=== PATIENT | female | born 2005 | race Two or more races ===

== ENCOUNTER 2024-11-25 19:57 | Emergency (ER) | payer MEDICAID, SELFPAY ==
[2024-11-25 19:58] VITALS: BMI 37.0
[2024-11-25 20:15] VITALS: BP 106/70; PULSE 112; RESP 18; TEMP 36.9; O2SAT 100
--- NOTE | 2024-11-25 20:28 | XR_ITS ---
Examination: Pelvic ultrasound, transabdominal, complete Technique: Transabdominal ultrasound of the pelvis performed using grayscale imaging Date and time of exam: November 25, 20244 hrs. Indications: A abnormal vaginal bleeding beginning 2 months ago with pelvic pain Findings: Uterus 8.6 x 4.0 x 5.2 cm Endometrial stripe is not thickened No uterine mass Right ovary 3.8 x 2.1 x 1.7 cm arterial flow Left ovary 3.7 x 2.4 x 2.4 cm arterial flow No fluid in the cul-de-sac Impression: Negative examination
--- NOTE | 2024-11-25 20:29 | PD.EDRME ---
Rapid Medical Screening Exam RME Arrival date/time: 11/25/24 19:57 19-year-old obese female presents emergency department complaining of prolonged menstrual cycle and vaginal bleeding that is been ongoing since this past May. Chief Complaint: Urogenital-Female Time Seen by Provider: 11/25/24 20:20 Vital signs: Vital Signs Temperature 98.5 F 11/25/24 20:15 Pulse Rate 112 H 11/25/24 20:15 Respiratory Rate 18 11/25/24 20:15 Blood Pressure 106/70 11/25/24 20:15 Pulse Oximetry (%) 100 11/25/24 20:15 Oxygen Delivery Method Room Air 11/25/24 20:15 Vital signs reviewed by provider: Yes
[2024-11-25 21:01] LABS: Collection Type, Urine Clean Catch
[2024-11-25 21:07] LABS: Basophils % (Auto) 1 % (0-2.5); Eosinophils # (Auto) 0.1 Thou/mm3 (0.0-0.5); Eosinophils % (Auto) 1 % (0-10); Hematocrit 40.1 % (36.0-46.0); Hemoglobin 13.7 g/dL (12.0-16.0); Immature Granulocytes % (Auto) 0 % (0-0); Immature Granulocytes Auto 0.02 Thou/mm3 (0.00-0.00); Lymphocytes # (Auto) 2.4 Thou/mm3 (1.0-4.8); Lymphocytes % (Auto) 30 % (10-50); Mean Corpuscular HGB Conc 34.2 g/dl (31.0-37.0); Mean Corpuscular Hemoglobin 28.7 pg (25.0-35.0); Mean Corpuscular Volume 84 fL (80-100); Monocytes # (Auto) 0.4 Thou/mm3 (0.0-0.8); Monocytes % (Auto) 6 % (0-12); Neutrophils % (Auto) 63 % (37-80); Nucleated Red Blood Cell % 0 /100 WBC (0); Platelet Count 241 Thou/mm3 (140-440); RDW Standard Deviation 37.4 fL (36.4-46.3); Red Blood Count 4.78 Miln/mm3 (4.00-5.20)
[2024-11-25 21:16] LABS: Bilirubin,Urine Negative (Negative); Blood,Urine 3+ (Negative); Clarity,Urine Clear (Clear/Hazy); Color,Urine Yellow (Lt Yel-Yel); Culture Indicated,Urine Not Indicated; Glucose, Urine Negative (Negative); Ketones,Urine Negative (Negative); Leukocyte Esterase,Urine Negative (Negative); Nitrite,Urine Negative (Negative); Protein,Urine Trace (Neg - Trace); RBC,Urine 377 /hpf (0-3); Squamous Epithelial Cell,Urine 1 /hpf (0-5); Urobilinogen,Urine Negative mg/dL (0.0-1.0); WBC,Urine 1 /hpf (0-5)
[2024-11-25 21:19] LABS: HCG,Qualitative Serum Negative
[2024-11-25 21:24] LABS: Alanine Aminotransferase 69 U/L (10-49); Albumin/Globulin Ratio 1.6 (1.2-2.2); Alkaline Phosphatase 88 U/L (46-116); Anion Gap 11 (7-16); Aspartate Amino Transferase 36 U/L (0-34); BUN/Creatinine Ratio 14 Ratio (12-20); Bilirubin,Total 0.4 mg/dL (0.3-1.2); Blood Urea Nitrogen 10 mg/dL (9-23); Carbon Dioxide 26.4 mMol/L (20.0-31.0); Chloride 104 mMol/L (98-107); Creatinine (Component) 0.7 mg/dL (0.6-1.3); Estimated Creatinine Clearance 139.2 mL/min (>60); Globulin 3.2 gm/dL (2.3-3.5); Glucose 89 mg/dL (74-106); Osmolality,Calculated 279 (275-295); Potassium 3.8 mMol/L (3.4-5.1); Sodium 141 mMol/L (136-145); Total Protein 8.2 gm/dL (5.7-8.2); eGFR > 60 See Note
--- NOTE | 2024-11-25 23:20 | EDNOTE_ITS ---
ED Female Urogenital RME/HPI General Chief complaint: Urogenital-Female Stated complaint: VAG BLEEGING/PAIN [id number] Time Seen by Provider: 11/25/24 20:20 Source: patient Arrival date/time: 11/25/24 19:57 19-year-old obese female presents emergency department complaining of prolonged menstrual cycle with abnormal vaginal bleeding that is been ongoing since this past May. Patient reports her menstrual cycle can last up to 10 days. Patient denies any fever, chills, dysuria, flank pain, or any other associated symptom. Mode of arrival: ambulatory Limitations: no limitations RME / HPI RME / HPI Narrative: 11/25/24 19:57 19-year-old obese female presents emergency department complaining of prolonged menstrual cycle and vaginal bleeding that is been ongoing since this past May. Related Data Previous Rx's ?Medication ?Instructions ?Recorded hydrocodone 5 mg-acetaminophen 325 1 tab PO Q6H #20 tabs 07/04/24 mg tablet ibuprofen 600 mg tablet 600 mg PO Q8H PRN pain #20 tabs 11/25/24 Allergies Allergy/AdvReac Type Severity Reaction Status Date / Time No Known Allergies Allergy Verified 07/04/24 10:05 Review of Systems Review of Systems Systems Reviewed: All systems reviewed, normal except as documented Constitutional Constitutional: Reports system reviewed and no additional complaints, except as documented, Denies body ache(s), Denies chills and Denies fever(s) Eyes Eyes: Reports system reviewed and no additional complaints, except as documented and Denies change in vision ENT Ears, Nose, Mouth, and Throat: Reports system reviewed and no additional complaints, except as documented, Denies disequilibrium, Denies dizziness, Denies sore throat and Denies vertigo Cardiovascular Cardiovascular: Reports system reviewed and no additional complaints, except as documented, Denies chest pain and Denies dyspnea Respiratory Respiratory: Reports system reviewed and no additional complaints, except as documented, Denies chest congestion, Denies cough and Denies dyspnea Gastrointestinal Gastrointestinal: Reports system reviewed and no additional complaints, except as documented, Denies abdominal pain, Denies nausea and Denies vomiting Genitourinary Genitourinary: Reports abnormal menses Musculoskeletal Musculoskeletal: Reports system reviewed and no additional complaints, except as documented, Denies abnormal gait and Denies arthralgias Integumentary/Breasts Skin/Breast: Reports system reviewed and no additional complaints, except as documented, Denies erythema, Denies rash and Denies wounds Neurologic Neurologic: Reports system reviewed and no additional complaints, except as documented, Denies abnormal gait, Denies disequilibrium, Denies dizziness and Denies vertigo Past Medical History Past Medical History NEUROLOGIC: Negative Neurological Disorders or Seizures CARDIAC: Negative Cardiac Disorders or Congestive Heart Failure RESPIRATORY: Negative Chronic Obstructive Pulmonary Disease (COPD) GASTROINTESTINAL: Positive Gastrointestinal Disorders, Gall Bladder Disease and Obesity; Negative Hepatitis GENITOURINARY: Negative Genitourinary Disorders or Renal Disease REPRODUCTIVE: Positive Previous Pregnancies (x2) MUSCULOSKELETAL: Negative Musculoskeletal Disorders ENDOCRINE: Negative Endocrine Disorders, Diabetes Mellitus Type 1 or Diabetes Mellitus Type 2 HEMATOLOGIC: Negative Blood Disorders OTHER HISTORY: Negative Hospitalization, Autoimmune Disease, Down Syndrome, Developmental Delay, Shingles, Falls, Blood Transfusions, Blood Transfusion Reaction, Anesthesia Reactions, Organ Transplant, Chemotherapy, Radiation Therapy, Hyperbaric Therapy, MRSA, VRSA, Vancomycin-Resistant Enterococci, Human Immunodeficiency Virus (HIV), Chicken Pox, Measles, Mumps, Rubella ([place] Measles), Pertussis, Clostridium Difficile or Cancer Family History FAMILY HISTORY: Positive Family Respiratory Disorders and Family Cancer; Negative Family Psychiatric Problems, Family Cardiac Disorders, Family Gastrointestinal Problems, Family Surgery or Family Anesthesia Reaction Surgical History SURGICAL: Negative Section or Organ Transplant Social History SMOKING STATUS: Never smoker ED Exam General Limitations: Present no limitations General appearance: Present alert and in no apparent distress Head Head exam: Present atraumatic Eye Eye exam: Present normal appearance, PERRL and EOMI ENT ENT exam: Present normal exam, normal oropharynx and mucous membranes moist Neck Neck exam: Present normal inspection, full ROM and trachea midline Chest Chest inspection: Present normal inspection and symmetric chest wall rise Respiratory Respiratory exam: Present normal lung sounds bilaterally Cardiovascular Cardiovascular exam: Present regular rate, normal rhythm and normal heart sounds Abdominal Exam Abdominal exam: Present soft and normal bowel sounds Extremities Exam Extremities exam: Present normal inspection and full ROM Back Exam Back exam: Present normal inspection and full ROM Neurological Exam Neurological exam: Present alert, oriented X3 and CN II-XII intact Psychiatric Psychiatric exam: Present normal affect and normal mood Skin Skin exam: Present warm, dry, intact and normal color Course Quality Measures none Orders Category Date Time Status US pelvic complete Stat Exams 11/25/24 20:28 Completed CBC Stat Lab 11/25/24 20:39 Completed CMP [Comprehensive Metabolic Panel] Stat Lab 11/25/24 20:39 Completed HCG,Qualitative Serum Stat Lab 11/25/24 20:39 Completed Urinalysis, C/S if Indicated Stat Lab 11/25/24 20:50 Completed Vital Signs Vital signs: Vital Signs Temperature 98.5 F 11/25/24 20:15 Pulse Rate 112 H 11/25/24 20:15 Respiratory Rate 18 11/25/24 20:15 Blood Pressure 106/70 11/25/24 20:15 Pulse Oximetry (%) 100 11/25/24 20:15 Oxygen Delivery Method Room Air 11/25/24 20:15 100% room air within normal limits Urogenital - Female MDM Narrative MDM Narrative:: 19-year-old obese female presents emergency department complaining of prolonged menstrual cycle with abnormal vaginal bleeding that is been ongoing since this past May. Patient reports her menstrual cycle can last up to 10 days. Patient denies any fever, chills, dysuria, flank pain, or any other associated symptom. CBC was unremarkable for any leukocytosis or anemia. CMP was unremarkable as well. Urinalysis was unremarkable for any infection. hCG negative. Ultrasound was also unremarkable examination. Patient appears nontoxic and is hemodynamic stable. Patient discharged ducted to follow-up with primary care provider and request referral to DIRECTOR OF CARDIAC REHABILITATION. Patient data External records reviewed:: [facility] previous records Clinical information provided by:: patient Social determinants that could affect healthcare access:: none Patient has the following chronic illnesses:: None How is presenting disease/condition affected by chronic disease/condition?: no chronic disease Evaluation data The following diagnostics were reviewed and interpreted by me:: lab results and radiology exam(s) Lab and/or radiology exams considered but not ordered:: Ordered Interpretation Summary: Interpreted by me Medications / Prescriptions Medications or Prescriptions considered but not ordered:: N/A Medication administrations:: N/A Consultations Consultation(s) initiated? (list below): No Diagnosis Urogenital Female Differential Diagnosis: urinary tract infection, bacterial vaginosis, trichomoniasis, cervicitis, vaginitis, ruptured ovarian cyst, cystitis and dysmenorrhea Most likely diagnosis given after review of the tests above:: Dysmenorrhea Admission Indicated Admission indicated?: not indicated Admission Request Was there a request for admission?: No Disposition Plan Disposition Plan: Discharge Discharge Attestation Discharge Attestation: The patient and all family members were given an opportunity to ask questions and understood the discharge instructions. Discharge instructions specifically effects, indications for sooner follow up or return to the emergency department, and the expected course of current diagnosis. Patient condition: Stable Discharge Plan Plan Patient Disposition: HOME (Self Care) Disposition Comment: Stable Prescriptions/Referrals Prescriptions/Med Rec: New ibuprofen 600 mg tablet 600 mg PO Q8H PRN (Reason: pain) Qty: 20 0RF No Action hydrocodone-acetaminophen 5-325 mg tablet 1 tab PO Q6H MDD 4 Qty: 20 0RF Problem List Clinical Impression: Dysmenorrhea Patient/Caregiver Discharge Instructions Discharge Activity: activity as tolerated Education Materials: ED MENSTRUAL CRAMPING Additional Instructions: Drink plenty of fluids and stay hydrated. Take Tylenol or ibuprofen as needed for pain. Follow-up with primary care provider and request referral to DIRECTOR OF CARDIAC REHABILITATION to discuss dysmenorrhea treatment options. Return to emergency department for any worsening symptoms or as needed. Print Language: Dutch Stand Alone Forms: [facility]ita Award Info., Patient Portal Info Letter NIKHIL/GRECIA Supervising Physician NIKHIL/GRECIA Supervising Physician: Dr. Haddad
== END 2024-11-25 23:45 | disposition home or self-care (01) ==
LOC: SERX 11-26 00:28
PROVIDERS: Emergency Provider Emergency Medicine
DX: N94.6 Dysmenorrhea, unspecified (principal)
CPT/HCPCS: 36415; 76856; 80053; 81001; 84703; 85025; 99284